=== PATIENT | female | born 1950 | race Caucasian/White ===

== ENCOUNTER 2019-08-12 11:18 | Day surgery (SDC) | payer MEDICARE ==
[2019-08-10 15:06] LABS: BASOPHILS # (AUTO) 0.01 x10^3/uL (0-0.1); BASOPHILS % (AUTO) 0 % (0-1); EOSINOPHILS % (AUTO) 2 % (1-7); LYMPHOCYTES # (AUTO) 1.84 x10^3/uL (1-3.4); LYMPHOCYTES % (AUTO) 28 % (22-44); MD NO; MEAN CORPUSCULAR HEMOGLOBIN 31.7 pg (27.0-34.8); MEAN CORPUSCULAR HGB CONC 33.5 g/dL (32.4-35.8); MEAN CORPUSCULAR VOLUME 94.8 fL (80-100); MEAN PLATELET VOLUME 8.9 fL (7.4-10.4); MONOCYTES # (AUTO) 0.49 x10^3/uL (0.2-0.8); MONOCYTES % (AUTO) 8 % (2-9); NEUTROPHILS % (AUTO) 63 % (42-75); PLATELET COUNT 175 x10^3/uL (130-400); RED BLOOD COUNT 5.11 x10^6/uL (3.82-5.3); RED CELL DISTRIBUTION WIDTH 13.5 % (9.6-15.2)
[2019-08-10 15:17] LABS: ANION GAP 5 mmol/L (5-15); CALCIUM 8.8 mg/dL (8.5-10.1); CHLORIDE 109 mmol/L (98-107); CREATININE 1.03 mg/dL (0.55-1.02)
[2019-08-10 15:20] LABS: INTERNATIONAL NORMALIZED RATIO 0.93 (0.93-1.1); PROTHROMBIN TIME 9.8 Seconds (9.6-11.5)
[~2019-08-12] VITALS: Ht 154.9 cm; Wt 81.8 kg
[~2019-08-12 11:18] MED LIST: ACET-1600 PO; ALEN70TA6 PO; ALIVE WOMEN'S1 EACH PO; CALC-126 PO; DENO60DI INJ; DIPHENHYDRAMINE 50 MG/ML, 1ML ONE; DOCU-131 PO; ENOX40SY4 SQ; FERR325T17 PO; FURO40TA6 PO; LISI-170 PO; MACI10TA PO; MAGN400T26 PO; METO5TAB5 PO; MULT1TAB11 PO; OMEP-110 PO; OXYC5TAB3 PO; POTA20TA6 PO; RANI-244 PO; RIVA10TA2 PO; SIMV20TA19 PO; SPIR1TAB3 PO; SPIR25TA5 PO; TADA20TA33 PO; THIA250T7 PO; WARF4TAB65 PO
[2019-08-12] MEDS ORDERED: SODIUM CHLORIDE 0.9% 1,000 ML IV SCH (11:35)
[2019-08-12] MEDS ORDERED: DIPHENHYDRAMINE 50 MG/ML, 1ML IVPush ONE (12:00)
[2019-08-12] MEDS ORDERED: FENTANYL PF 100 MCG/2ML ONE (15:02)
[2019-08-12] MEDS ORDERED: MIDAZOLAM 1 MG/ML, 5ML ONE (15:02)
[2019-08-12] MEDS ORDERED: LIDOCAINE-MPF 1%, 5ML ONE (15:03)
[2019-08-12] MEDS ORDERED: HEPARIN 1,000 UNITS/ML, 10ML ONE (15:03)
== END 2019-08-12 17:45 | disposition home or self-care (01) ==
LOC: CACL 11:18 → MERGE 15:00 → CACL 17:45
PROVIDERS: ATTEND Internal Medicine Cardiovascular Disease
DX: I27.21 Secondary pulmonary arterial hypertension (principal); G47.33 Obstructive sleep apnea (adult) (pediatric); E78.2 Mixed hyperlipidemia; M32.10 Systemic lupus erythematosus, organ or system involvement unspecified; J44.9 Chronic obstructive pulmonary disease, unspecified; Z79.899 Other long term (current) drug therapy; Z87.891 Personal history of nicotine dependence; Z99.81 Dependence on supplemental oxygen; Z79.01 Long term (current) use of anticoagulants
CPT/HCPCS: 36415; 80048; 85025; 85610; 93451; 99156; 99157; C1769; C1894; J1200; J2250; J3010; J1644